=== PATIENT | male | born 1960 | race Caucasian/White ===

== ENCOUNTER → 2017-04-15 | Outpatient (CLI) | payer BC ==
[~2017-04-15] MED LIST: CETI10TA10 PO; IPRA0.06; MULT-506 PO; SILD50TA PO
--- NOTE | 2017-04-15 08:14 | DIAGNOSTIC IMAGING REPORT ---
(BARIUM SWALLOW) ESOPHAGUS CLINICAL HISTORY: 56 years-old Male presenting with DYSPHAGIA. TECHNIQUE: A standard air contrast barium esophagram is performed. Multiple spot images of the esophagus are acquired both upright and prone. COMPARISON: None. FINDINGS: The patient was able to ingest barium and the barium pill without difficulty. No aspiration observed. Normal mucosal pattern of the hypopharynx and esophagus. No evidence of intrinsic or extrinsic mass lesion. The gastroesophageal junction distended normally. No gastroesophageal reflux was observed. Fluoroscopy time: 1.7 minutes. Fluoroscopic images: 21. IMPRESSION: Normal swallow study without aspiration or esophageal abnormality. Electronically signed by: Arcadio Stone 04/15/2017 8:13 AM Dictated Date/Time: 04/15/2017 8:11 AM
== END | disposition home or self-care (01) ==
LOC: C.RAD 07:25
DX: R13.14 Dysphagia, pharyngoesophageal phase (principal)

== ENCOUNTER → 2018-05-11 | Outpatient (CLI) | payer OTHER ==
--- NOTE | 2018-05-11 09:38 | DIAGNOSTIC IMAGING REPORT ---
ABDOMEN FOR HERNIA HISTORY: 58 years-old Male R10.30 Inguinal pain04/28/18 @ [facility], arrive at 12pm to register E acute right inguinal pain with history of prior inguinal hernia repair. COMPARISON: Right hip radiographs 08/03/2013 TECHNIQUE: Multiple real-time sonogram images of the right inguinal tissues were obtained assessing grayscale appearance and color flow FINDINGS: No focal abnormality identified within the right inguinal tissues. No hernia, adenopathy, focal fluid collection or soft tissue mass identified. Heterogeneous shadowing area within the right inguinal canal suggests possible mesh material from prior hernia repair. No recurrent hernia identified. IMPRESSION: No sonographic evidence of a right-sided inguinal hernia. The above report was generated using voice recognition software. It may contain grammatical, syntax or spelling errors. Electronically signed by: Familia Castellano M.D. 05/11/2018 9:36 AM Dictated Date/Time: 05/11/2018 9:34 AM
== END | disposition home or self-care (01) ==
LOC: C.ULTR 09:12
PROVIDERS: ATTEND Internal Medicine
DX: R10.30 Lower abdominal pain, unspecified (principal)

== ENCOUNTER 2023-11-07 21:40 | Inpatient (IN) ==
[2023-11-07 22:14] LABS: Basophils # (auto) 0.04 K/uL (0.00-0.20); Basophils % (auto) 0.2 %; Eosinophils # (auto) 0.02 K/uL (0.00-0.50); Eosinophils % (auto) 0.1 %; Hematocrit (blood only) 42.2 % (42.0-52.0); Immature Granulocytes # (auto) 0.13 K/uL (0.01-0.20); Immature Granulocytes % (auto) 0.6 %; Lymphocytes # (auto) 1.21 K/uL (1.20-3.40); Lymphocytes % (auto) 5.8 %; Mean Corpuscular Hemoglobin 30.2 pg (25.0-34.0); Mean Corpuscular Hgb Conc 33.2 g/dL (32.0-36.0); Mean Corpuscular Volume 91.1 fL (80.0-100.0); Mean Platelet Volume 8.2 fL (9.4-12.4); Monocytes # (auto) 0.75 K/uL (0.11-0.59); Monocytes % (auto) 3.6 %; Neutrophils # (auto) 18.63 K/uL (1.40-6.50); Neutrophils % (auto) 89.7 %; Platelet Count 220 K/uL (130-400); RDW Coefficient of Variation 12.7 % (11.5-14.5); RDW Standard Deviation 41.5 fL (36.4-46.3); Red Blood Count 4.63 M/uL (4.70-6.10); White Blood Count 20.78 K/ul (4.8-10.8)
[2023-11-07 22:30] LABS: Albumin Globulin Ratio 1.4 (0.9-2); Albumin Level 4.5 gm/dl (3.4-5.0); BUN Creatinine Ratio 19.4 (10-20); Bilirubin,Total 0.4 mg/dl (0.2-1.0); Calcium 9.7 mg/dl (8.6-10.3); Creatinine Clr Calc Pharmacy 107.7 ml/min; Est GFR (African American) 115.1 ml/min; Est GFR (Non-African American) 99.3 ml/min; Globulin 3.2 gm/dl (2.5-4.0); Potassium 3.8 mmol/L (3.5-5.1); Total Protein 7.7 gm/dl (6.0-8.3)
[2023-11-07 22:37] LABS: Troponin I High Sensitivity 3.3 pg/ml (0-20)
[2023-11-07 22:41] LABS: INR 0.9 (0.9-1.1); Partial Thromboplastin Ratio 1.1; Partial Thromboplastin Time 31 Seconds (21-31); Prothrombin Time 10.3 Seconds (9.0-12.0)
[2023-11-07 22:58] LABS: Adenovirus PCR Not Detected (NotDetected); Bordetella parapertussis PCR Not Detected (NotDetected); Bordetella pertussis PCR Not Detected (NotDetected); Chlamydia pneumoniae PCR Not Detected (NotDetected); Coronavirus 229E PCR Not Detected (NotDetected); Coronavirus CoV-2 (COVID19)PCR Not Detected (NotDetected); Coronavirus HKU1 PCR Not Detected (NotDetected); Coronavirus NL63 PCR Not Detected (NotDetected); Coronavirus OC43PCR Not Detected (NotDetected); Human Metapneumovirus PCR Not Detected (NotDetected); Influenza A PCR Not Detected (NotDetected); Influenza B PCR Not Detected (NotDetected); Mycoplasma pneumoniae PCR Not Detected (NotDetected); Parainfluenza Virus 1 PCR Not Detected (NotDetected); Parainfluenza Virus 2 PCR Not Detected (NotDetected); Parainfluenza Virus 3 PCR Not Detected (NotDetected); Parainfluenza Virus 4 PCR Not Detected (NotDetected); Respiratory Syncytial VirusPCR Not Detected (NotDetected); Rhinovirus/Enterovirus PCR Not Detected (NotDetected)
[2023-11-07] MEDS ORDERED: PIPERACILLIN/TAZOBACTAM 4.5 GM/100 ML BAG IV ONE (23:02)
[2023-11-07] MEDS ORDERED: ACETAMINOPHEN 1,000 MG/100 ML VIAL IV STA (23:02)
[2023-11-07] MEDS ORDERED: KETOROLAC TROMETHAMINE 15 MG/ML VIAL IV STA (23:02)
[2023-11-07] MEDS: SODIUM CHLORIDE 0.9% 1,000 ML IV SCH ×2 (23:21→23:54)
--- NOTE | 2023-11-07 23:35 | Emergency Department Note ---
History of Present Illness General Chief complaint: Shortness of Breath/Dyspnea Stated complaint: LOW OX, SOB/CHEST PAIN, RSV/PNEMONIA Time Seen by Provider: 11/07/23 22:49 History of Present Illness Maximum Pain Intensity: 7 This 63-year-old male who had RSV at the beginning of the month and has been on cefdinir, Zithromax and steroids presents ER for worsening symptoms. Patient complains of cough, congestion, chest pain, dyspnea, back pain and generalized illness. He states his O2 today was 88% at home. He does not smoke. Family doctor started him on Advair recently. No history of PE or DVT. He does not smoke. Patient denies abdominal pain, vomiting, diarrhea. is present. Home Medications Medication Instructions Recorded Confirmed Type cetirizine 10 mg tablet 10 mg PO QPM #30 tabs 04/26/19 11/07/23 History multivitamin (Daily Multi-Vitamin 1 tab PO QAM 04/26/19 11/07/23 History tablet) sildenafil (pulm.hypertension) 20 20 mg PO UD PRN ud #30 tabs 05/04/22 11/07/23 Rx mg tablet lactobacillus comb no.10 20 20,000 mmu cells PO QAM 11/30/22 11/07/23 History billion cell capsule (Probiotic) magnesium citrate 4 gram oral 250 mg PO QAM 11/30/22 11/07/23 History packet zinc 15 mg tablet 15 mg PO QAM 11/30/22 11/07/23 History albuterol sulfate 90 mcg/actuation 2 inh inhalation Q4H PRN sob #8.5 07/11/23 11/07/23 Rx aerosol inhaler grams [id number]/Laxasperse Cap See Rx Instructions .Route 09/13/23 11/07/23 Rx .COMPLEX #20 caps benzonatate 200 mg capsule 200 mg PO TID PRN cough #30 caps 10/24/23 11/07/23 Rx fluticasone propionate 115 2 puff inhalation BID #12 grams 11/01/23 11/07/23 Rx mcg-salmeterol 21 mcg/actuation HFA inhaler (Advair HFA) ipratropium bromide 42 mcg (0.06 2 spray intranasal BID 11/07/23 11/07/23 History %) nasal spray omega-3 fatty acids 1,000 mg 1,000 mg PO QAM 11/07/23 11/07/23 History capsule Allergies Allergy/AdvReac Type Severity Reaction Status Date / Time house dust mite Allergy Mild congestion Verified 11/01/23 10:04 mold Allergy Mild congestion Verified 11/01/23 10:04 pollen extracts Allergy Mild congestion Verified 11/01/23 10:04 weed pollen Allergy Mild congestion Verified 11/01/23 10:04 codeine AdvReac Mild N/V Verified 11/01/23 10:04 Past Med/Surg History Medical History History of colon polyps Environmental allergies History of COVID-19 09/2020>resolved Hernia Constipation gluten intolerance Arrhythmia arrhythmia noted during stress test + 15 years ago; resolved, no issues since; followed w/ cardio x 1 year; no longer sees a senior software qa analyst. Chest tightness Inguinal pain Surgical History S/P left inguinal hernia repair (01/21/23) Left Inguinal Hernia Open Repair with Mesh(Left). Left ilioinguinal neurolysis- Lance Flowers, DO H/O inguinal hernia repair RT Nausea and vomiting after administration of anesthetic agent History of wisdom tooth extraction History of sinus surgery multiple > polyps removed History of colonoscopy H/O uvulectomy Dr. Catherine-10/22/2016 H/O vasectomy Family History Father Acute myocardial infarction Diabetes Hearing loss Hypertension Heart disease Stroke Mother Allergies Aunt Colon cancer maternal Cancer Grandfather (Paternal) Acute myocardial infarction Brother Hypertension Grandfather (Maternal) Lung cancer smoker Grandmother Cancer Grandfather Cancer Other No family history of adverse response to anesthesia No family history of bleeding disorder Denies family history of Ovarian cancer Prostate cancer Breast cancer Social History Smoking Status: Never smoker Second Hand Exposure: No; Do You Dip or Chew Tobacco: No; Hx Alcohol Use: Yes Alcohol type: wine Alcohol Intake Frequency: 2-3 x/Week Alcohol Intake Frequency Comment: 2 glasses of wine on the weekend Hx Substance Use: No Preferred Language: Cambodian Communication Ability: Effective Visual Impairment: No Limitations Hearing Ability: Normal Braille Translator Required: No Beliefs That Will Affect Care: None marital status: Current Living Situation: Spouse current occupational status: employed 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 How many Children do You have: 4 Feels Safe at Home: Yes Childhood Exposure to Second-Hand Smoke: Yes during the past year weight has: remained stable Dental Care, Regularly: Yes Physical Activity Frequency: 5-6 Times per Week Seatbelt Use: always Sunscreen Use: Yes Assistive Devices: Glasses and Hearing Aid - Bilateral Review of Systems A total of 10 systems reviewed and were otherwise negative Physical Exam Vital Signs Vital Signs - 24 hr 11/07/23 21:44 11/07/23 23:09 11/07/23 23:18 Temperature 37.1 C 39.2 C H Temperature Source Oral Oral Pulse Rate 105 H 104 H Pulse Rate from SpO2 Sensor Respiratory Rate 18 Respiratory Effort / Characteristics Non-Labored Spontaneous Respiratory Depth Normal Blood Pressure 170/90 H Blood Pressure Mean 116 Pulse Oximetry 97 Oxygen Delivery Method Room Air Oxygen Flow Rate Sepsis Recent Fever Within 48 Hours No Sepsis New/Unexplained Change in Mental Status No Sepsis Action Taken by Nursing No Action Required 11/07/23 23:18 11/07/23 23:19 11/07/23 23:19 Temperature Temperature Source Pulse Rate 103 H 104 H Pulse Rate from SpO2 Sensor 103 H 103 H Respiratory Rate 24 24 Respiratory Effort / Characteristics Respiratory Depth Blood Pressure 140/86 Blood Pressure Mean 98 Pulse Oximetry 96 96 Oxygen Delivery Method Oxygen Flow Rate Sepsis Recent Fever Within 48 Hours Sepsis New/Unexplained Change in Mental Status Sepsis Action Taken by Nursing 11/07/23 23:30 11/07/23 23:30 11/07/23 23:50 Temperature Temperature Source Pulse Rate 103 H Pulse Rate from SpO2 Sensor 103 H Respiratory Rate 15 Respiratory Effort / Characteristics Respiratory Depth Blood Pressure 145/79 H Blood Pressure Mean 92 Pulse Oximetry 97 Oxygen Delivery Method Room Air Oxygen Flow Rate 96 Sepsis Recent Fever Within 48 Hours Sepsis New/Unexplained Change in Mental Status Sepsis Action Taken by Nursing 11/07/23 23:50 11/08/23 00:06 11/08/23 00:30 Temperature Temperature Source Pulse Rate 108 H 100 H Pulse Rate from SpO2 Sensor 100 H Respiratory Rate 19 21 Respiratory Effort / Characteristics Respiratory Depth Blood Pressure Blood Pressure Mean Pulse Oximetry 96 96 Oxygen Delivery Method Room Air Oxygen Flow Rate 0 Sepsis Recent Fever Within 48 Hours Sepsis New/Unexplained Change in Mental Status Sepsis Action Taken by Nursing 11/08/23 00:41 Temperature 37.5 C Temperature Source Oral Pulse Rate Pulse Rate from SpO2 Sensor Respiratory Rate Respiratory Effort / Characteristics Respiratory Depth Blood Pressure Blood Pressure Mean Pulse Oximetry Oxygen Delivery Method Oxygen Flow Rate Sepsis Recent Fever Within 48 Hours Sepsis New/Unexplained Change in Mental Status Sepsis Action Taken by Nursing VITALS: Vitals are noted on the nurse's note and reviewed by myself. Vital signs febrile GENERAL: Pleasant male, in no acute distress, nondiaphoretic, well-developed well-nourished. SKIN: Capillary reflex less than 2 seconds. HEENT: Normocephalic. PERRLA. EOMI. Nares patent. Mucous membranes moist. Neck is supple without nuchal rigidity. HEART: Regular rate and rhythm LUNGS: Clear to auscultation bilaterally without wheezes, rales or rhonchi. No retractions or accessory muscle use. ABDOMEN: Positive bowel sounds x 4. Normal tympanic percussion. Soft, nontender, without masses or organomegaly. Romano sign negative. No guarding or rebound tenderness. no CVA tenderness MUSCULOSKELETAL: No gross musculoskeletal defects. NEURO: Patient was alert and oriented to person place and time. No focal neurological deficits. Course Administered Medications Sodium Chloride (Nss) 1,000 mls @ 999 mls/hr IV .Q1H1M TWYLA Stop: 11/08/23 01:15 Last Admin: 11/07/23 23:54 Dose: 999 mls/hr Documented By: Infusion: 11/07/23 23:53 Dose: Infused Documented By: Infusion: 11/07/23 23:53 Dose: Infused Documented By: Admin: 11/07/23 23:21 Dose: 999 mls/hr Documented By: JODIE Discontinued Medications Acetaminophen (Ofirmev) 1,000 mg in 100 mls @ 400 mls/hr IV NOW STA Stop: 11/07/23 23:16 Last Infusion: 11/07/23 23:52 Dose: Infused Documented By: Admin: 11/07/23 23:20 Dose: 400 mls/hr Documented By: JODIE Piperacillin Sod/Tazobactam Sod (Zosyn) 4.5 gm in 100 mls @ 200 mls/hr IV NOW ONE Stop: 11/07/23 23:31 Last Admin: 11/07/23 23:45 Dose: 200 mls/hr Documented By: JODIE Ioversol (Optiray 320 125ml) 125 ml IV ONCE ONE Stop: 11/08/23 00:04 Last Admin: 11/08/23 00:03 Dose: 119 ml Documented By: TEODORA Ketorolac Tromethamine (Ketorolac Tromethamine 15 Mg/Ml Vial) 10 mg IV NOW STA Stop: 11/07/23 23:03 Last Admin: 11/07/23 23:20 Dose: 10 mg Documented By: JODIE Medical Decision Making Medical Records Attestation: I reviewed the patient's medical records. Home Medications Current Medication List: was personally reviewed by me Laboratory Data Attestation: I reviewed the patient's lab results. 11/07/23 21:53 11/07/23 21:53 Lab Results 11/07/23 11/07/23 11/07/23 Range/Units 21:53 22:00 23:37 WBC 20.78 H (4.8-10.8) K/ul RBC 4.63 L (4.70-6.10) M/uL Hgb 14.0 (14.0-18.0) g/dl Hct 42.2 (42.0-52.0) % MCV 91.1 (80.0-100.0) fL MCH 30.2 (25.0-34.0) pg MCHC 33.2 (32.0-36.0) g/dL RDW Std Deviation 41.5 (36.4-46.3) fL RDW Coeff of Kateryna 12.7 (11.5-14.5) % Plt Count 220 (130-400) K/uL MPV 8.2 L (9.4-12.4) fL Immature Gran % (Auto) 0.6 % Neut % (Auto) 89.7 % Lymph % (Auto) 5.8 % Taylor % (Auto) 3.6 % Eos % (Auto) 0.1 % Baso % (Auto) 0.2 % Neut # (Auto) 18.63 H (1.40-6.50) K/uL Lymph # (Auto) 1.21 (1.20-3.40) K/uL Taylor # (Auto) 0.75 H (0.11-0.59) K/uL Eos # (Auto) 0.02 (0.00-0.50) K/uL Baso # (Auto) 0.04 (0.00-0.20) K/uL Immature Gran # (Auto) 0.13 (0.01-0.20) K/uL PT 10.3 (9.0-12.0) Seconds INR 0.9 (0.9-1.1) APTT 31 (21-31) Seconds PTT Ratio 1.1 Sodium 137 (136-145) mmol/L Potassium 3.8 (3.5-5.1) mmol/L Chloride 100 (98-107) mmol/L Carbon Dioxide 29 (21-32) mmol/L Anion Gap 8 (3-11) BUN 14 (6-23) mg/dl Creatinine 0.72 (0.6-1.4) mg/dl Est Cr Clr Drug Dosing 107.7 ml/min Est GFR ( Amer) 115.1 ml/min Est GFR (Non-Af Amer) 99.3 ml/min BUN/Creatinine Ratio 19.4 (10-20) Glucose 100 H (70-99(Fasting)) mg/dl Lactate 1.4 (0.4-2.0) mmol/L Calcium 9.7 (8.6-10.3) mg/dl Total Bilirubin 0.4 (0.2-1.0) mg/dl AST 15 (13-39) U/L ALT 13 (7-52) U/L Alkaline Phosphatase 83 (34-104) U/L Total Creatine Kinase 47 (30-223) U/L Troponin I High Sens 3.3 (0-20) pg/ml Total Protein 7.7 (6.0-8.3) gm/dl Albumin 4.5 (3.4-5.0) gm/dl Globulin 3.2 (2.5-4.0) gm/dl Albumin/Globulin Ratio 1.4 (0.9-2) Procalcitonin < 0.05 (0-0.5) ng/ml Adenovirus (PCR) Not Detected (NotDetected) B. pertussis DNA (PCR) Not Detected (NotDetected) B.parapertussis DNA PCR Not Detected (NotDetected) C. pneumoniae DNA (PCR) Not Detected (NotDetected) Coronavirus OC43 (PCR) Not Detected (NotDetected) Coronavirus HKU1 (PCR) Not Detected (NotDetected) Coronavirus 229E (PCR) Not Detected (NotDetected) SARS-CoV-2 (PCR) Not Detected (NotDetected) Coronavirus NL63 (PCR) Not Detected (NotDetected) Human Metapneumovir PCR Not Detected (NotDetected) Influenza Type A (PCR) Not Detected (NotDetected) Influenza Type B (PCR) Not Detected (NotDetected) M. pneumoniae (PCR) Not Detected (NotDetected) Parainfluenza 1 (PCR) Not Detected (NotDetected) Parainfluenza 2 (PCR) Not Detected (NotDetected) Parainfluenza 3 (PCR) Not Detected (NotDetected) Parainfluenza 4 (PCR) Not Detected (NotDetected) RSV (PCR) Not Detected (NotDetected) Entero/Rhino (PCR) Not Detected (NotDetected) Imaging Data Attestation: I personally reviewed and interpreted this imaging study as follows: Radiologist's Impression: Chest CTA 11/07/23 23:34 Exam(s): CTA CHEST IV Amt: 119 ml optiray 320 EXAM: CT Angiography Chest With Intravenous Contrast CLINICAL HISTORY: Pulmonary embolus. TECHNIQUE: Axial computed tomographic angiography images of the chest with intravenous contrast. CTDI is 27 mGy and DLP is 571.76 mGy-cm. Automated exposure control was utilized for the study. A dose lowering technique was utilized adhering to the principles of ALARA. MIP reconstructed images were created and reviewed. COMPARISON: Chest radiograph 11/07/2023 FINDINGS: Pulmonary arteries: Unremarkable. No pulmonary embolus. Aorta: Minimal atherosclerosis. No thoracic aortic aneurysm. Lungs: Airspace opacities of the bilateral lower lobes and right upper lobe are concerning for multifocal pneumonia and/or aspiration. Pleural space: Unremarkable. No significant effusion. No pneumothorax. Heart: Unremarkable. No cardiomegaly. No significant pericardial effusion. No evidence of RV dysfunction. Bones/joints: There are degenerative changes of the spine. No acute fracture. Soft tissues: Unremarkable. Lymph nodes: Unremarkable. No enlarged lymph nodes. IMPRESSION: 1. No pulmonary embolus. 2. Airspace opacities of the bilateral lower lobes, right upper lobe and to a lesser degree right middle lobe are concerning for multifocal pneumonia and/or aspiration. Electronically signed by: Anna Stokes MD 11/08/23 00:30 AM [facility] Narrative Prior records/ancillary studies reviewed. Triage Nursing notes reviewed. Additional history obtained from family. The patient's history was concerning for fever. Differential diagnosis: Etiologies such as viral syndrome, otitis, pharyngitis, pneumonia, influenza, meningitis, urinary tract infection, sepsis, bacteremia, as well as others were entertained. Physical examination: As above ER treatment provided: An order was placed for continuous cardiac monitoring. The monitor shows a rate of 60-1 20 with a sinus rhythm per my interpretation. IV fluids, Toradol, Tylenol, Zosyn was ordered On reassessment the patient felt better. Diagnostics interpreted by me: ECG: Ordered for chest pain EKG: Normal sinus, normal intervals, no acute ST-T wave changes, rate 100. Impression normal sinus rhythm independent interpreted by myself The labs Independently Interpreted by myself revealed leukocytosis, negative [employer] Blood cultures pending extracts, weed pollen, codeine (More) Close Micro Respiratory Specimen 10/14/23 Gram Stain - Final [employer] [address], [place] [address] / Director: Arcadio Shook M.D. Clinical Laboratory Report Name: Paulina FREED III Acct: [id number] Status: DEP ER : 1960 [facility] [place] Date: 10/14/23 Age: 63 Sex: M Dis Date: Loc: Emergency Department Spec: [id number] Collected: 10/14/23115 Received: 10/14/23-[address]: Damion Ochoa DO Source: Sputum, Expectorated OV Order: Ordered: Sputum Cult/Smr Procedure Result Verified Site Gram Stain Final 10/15/23-740 Gram Stain Result Many Polys Seen Rare Epithelial Cells Moderate Gram Positive Cocci Few Gram Negative Cocci Sputum Culture Final 10/17/23-1146 Organism 1 Streptococcus pneumoniae Quantity Many Sens Sensitivities to Follow Normal Melanie Light Normal Melanie S pneumo RX M.I.C. --- --------- Amox/Clav S <=0.5/.25 Azithromycin S <=0.25 Cefepime S <=0.25 Cefotaxime S <=0.25 Cefotaxime S Ceftriaxone S <=0.25 Ceftriaxone S Cefuroxime S <=0.25 Chloramphenicol S <=1 Clindamycin S <=0.06 Erythromycin S <=0.06 Levofloxacin S 1 Meropenem S <=0.06 Penicillin S <=0.03 Penicillin S Penicillin Oral S Tetracycline S <=0.5 Trimeth/Sulfa S <=.25/4.7 Vancomycin S 0.5 Streptococcus pneumoniae: Strep Plus Non Meningitis Interpretations S = SENSITIVE I = INTERMEDIATE R = RESISTANT Imaging studies: Chest x-ray concerning for right lower lobe pneumonia per my independent interpretation CTA concerning for multifocal pneumonia CURB Score: Confusion: 0 Urea (BUN > 19): 0 Respiratory Rate (>30/min): 0 Blood Pressure: Diastolic <60 or Systolic <90 0 Age (>= 65) 0 Total (0-1 low risk, 2-5 high risk): 0 Consultation: A consultation was placed with hospitalist. The case was discussed and diagnostics were reviewed. The patient was evaluated in the ER for further treatment. This appears to be consistent with multifocal pneumonia. Patient has already been on antibiotics and steroids. He is getting much worse. Sats at home are 88%. He was given Zosyn and medicated as above. He was reassessed multiple times. Medicine was consulted and case was discussed. Patient will be admitted to there service for further evaluation and work. By the evaluation outlined above emergent etiologies such as otitis, pharyngitis, meningitis, urinary tract infection, sepsis, bacteremia, as well as others were deemed relatively unlikely. The pt informed about the findings as listed above. All questions were answered and pleased with the treatment. The chart was completed utilizing [employer] voice recognition software. Grammatical errors, random word insertions, pronoun errors, and incomplete sentences are an occassional consequence of this system due to software limitations, ambient noise, and hardware issues. Any formal questions or concerns about the content, text, or information contained within the body of this dictation should be directly addressed to the physician operator assistant i cementing for clarification. Impression & Plan Multifocal pneumonia Discharge Plan Visit Data Chief Complaint: Shortness of Breath/Dyspnea Stated Complaint: LOW OX, SOB/CHEST PAIN, RSV/PNEMONIA ED Provider: Sandi Gibson ED Midlevel Provider: Kerrie Gaxiola Discharge Problem: Multifocal pneumonia Patient Disposition: Admitted As Inpatient Condition: Good Forms Stand Alone Forms: [facility]gor Prescriptions Prescriptions: No Action sildenafil (pulm.hypertension) 20 mg tablet 20 mg PO UD PRN (Reason: ud) Qty: 30 3RF Rx Instructions: 20 mg PO TAKE 2-5 TABLETS PRN; benzonatate 200 mg capsule 200 mg PO TID PRN (Reason: cough) Qty: 30 0RF [id number]/Laxasperse Cap capsule See Rx Instructions .ROUTE .COMPLEX Qty: 20 1RF Rx Instructions: Mix 1 cap & 1 saline pkt w/ 6oz distilled h20 in bottle. Irrigate 3oz each nasal passage BID. fluticasone propion-salmeterol [Advair HFA] 115-21 mcg/actuation HFA aerosol inhaler 2 puff inhalation BID Qty: 12 1RF cetirizine 10 mg tablet 10 mg PO QPM Qty: 30 multivitamin [Daily Multi-Vitamin] tablet 1 tab PO QAM albuterol sulfate 90 mcg/actuation HFA aerosol inhaler 2 inh INH Q4H PRN (Reason: sob) Qty: 8.5 5RF zinc 15 mg Tablet 15 mg PO QAM magnesium citrate 4 gram Packet 250 mg PO QAM Probiotic 20 billion cell Capsule 20,000 mmu cells PO QAM Rx Instructions: administer with a meal ipratropium bromide 42 mcg (0.06 %) spray,non-aerosol 2 spray intranasal BID omega-3 fatty acids 1,000 mg Capsule 1,000 mg PO QAM Referrals Referrals: Luis Baird MD [Primary Care Provider] -
[2023-11-08] MEDS ORDERED: OPTIRAY 320 125ml IV ONE (00:03)
--- NOTE | 2023-11-08 00:32 | CT Scan Report ---
Exam(s): CTA CHEST IV Amt: 119 ml optiray 320 EXAM: CT Angiography Chest With Intravenous Contrast CLINICAL HISTORY: Pulmonary embolus. TECHNIQUE: Axial computed tomographic angiography images of the chest with intravenous contrast. CTDI is 27 mGy and DLP is 571.76 mGy-cm. Automated exposure control was utilized for the study. A dose lowering technique was utilized adhering to the principles of ALARA. MIP reconstructed images were created and reviewed. COMPARISON: Chest radiograph 11/07/2023 FINDINGS: Pulmonary arteries: Unremarkable. No pulmonary embolus. Aorta: Minimal atherosclerosis. No thoracic aortic aneurysm. Lungs: Airspace opacities of the bilateral lower lobes and right upper lobe are concerning for multifocal pneumonia and/or aspiration. Pleural space: Unremarkable. No significant effusion. No pneumothorax. Heart: Unremarkable. No cardiomegaly. No significant pericardial effusion. No evidence of RV dysfunction. Bones/joints: There are degenerative changes of the spine. No acute fracture. Soft tissues: Unremarkable. Lymph nodes: Unremarkable. No enlarged lymph nodes. IMPRESSION: 1. No pulmonary embolus. 2. Airspace opacities of the bilateral lower lobes, right upper lobe and to a lesser degree right middle lobe are concerning for multifocal pneumonia and/or aspiration. Electronically signed by: Anna Stokes MD 11/08/23 00:30 AM
[2023-11-08 01:32] LABS: Appearance Urine Clear (Clear); Bilirubin Urine Negative (Negative); Blood Urine Negative (Negative); Color Urine Yellow; Glucose Urine UA Negative (Negative); Ketones Urine Negative (Negative); Leukocyte Esterase Urine Negative (Negative); Nitrite Urine Negative (Negative); Protein Urine Negative (Negative); Specific Gravity Urine 1.016 (1.000-1.030); Urobilinogen Urine Negative (Negative)
--- NOTE | 2023-11-08 01:46 | History & Physical Report ---
Date of Service November 08, 2023 Assessment & Plan (1) Multifocal pneumonia: Plan: 63yo male with ongoing respiratory complaints for approximately 1 month. Patient has completed 10 days of Cefdinir, 5 days of Azithromycin as well as a course of Solumedrol. He has been using his Advair inhaler BID as well. Still with persistent cough keeping him up at night. He experienced worsening of symptoms today including fever, chills, body aches, worsening fatigue and cough as well as hypoxia at home to 87% on room air. Workup as above with elevation on WBC count at 20.78 with neutrophil predominance. Procalcitonin is NEGATIVE as is Respiratory biofire panel. CTA chest with multifocal PNA. Saturations are adequate on room air here. -Admit to Medical -Check sputum culture and gram stain -Check legionella -Check Fungitell -Check MRSA nares -Continue Zosyn -Tylenol PRN -Hycodan cough medicine 5mL po TID PRN -Mucinex 1200mg po BID -Zofran PRN -Continue Advair and PRN Albuterol History of Present Illness Chief Complaint: cough, SOB and Fever Primary Care Provider: Luis Baird MD Corey Moore is a 63yo male with a history of well controlled asthma and chronic sinusitis presenting with fever, chills and cough. Patient first became ill approximately 1 month ago at the beginning of October. He had productive cough, fevers, chills and body aches at that time. On 10/14/23 he was found to be POSITIVE for RSV as well as Streptococcus pneumoniae in the sputum. He was seen by his PCP at that time and ultimately sent to the ER for persistent tachycardia. He had a CTA of the chest which showed mucus plugging with a mild right basilar PNA, no PE. He was prescribed Cefdinir x 10d as well as Azithromycin x 5d course which he completed. He reports that his symptoms persisted. He was seen again by his PCP on 10/19/23 and was started on Medrol dose pack for ongoing symptoms. Again he reported that his symptoms persisted. He was seen again by his PCP on 11/01/23 and was started on Advair. He has had ongoing cough and congestion as well as some right sided back pain. Today he noted worsening cough with yellow sputum as well as chills/shakes and a fever to 102. His pulse ox was also low at 87% on room air.. In the ER he is afebrile, HD stable. Adequate oxygenation on room air. ER Course: Toradol 10mg IV Tylenol 1gm IV NSS x 2L Zosyn 4.5gm Allergies Allergy/AdvReac Type Severity Reaction Status Date / Time house dust mite Allergy Mild congestion Verified 11/01/23 10:04 mold Allergy Mild congestion Verified 11/01/23 10:04 pollen extracts Allergy Mild congestion Verified 11/01/23 10:04 weed pollen Allergy Mild congestion Verified 11/01/23 10:04 codeine AdvReac Mild N/V Verified 11/01/23 10:04 Home Medications Medication Instructions Recorded Confirmed Type cetirizine 10 mg tablet 10 mg PO QPM #30 tabs 04/26/19 11/07/23 History multivitamin (Daily Multi-Vitamin 1 tab PO QAM 04/26/19 11/07/23 History tablet) sildenafil (pulm.hypertension) 20 20 mg PO UD PRN ud #30 tabs 05/04/22 11/07/23 Rx mg tablet lactobacillus comb no.10 20 20,000 mmu cells PO QAM 11/30/22 11/07/23 History billion cell capsule (Probiotic) magnesium citrate 4 gram oral 250 mg PO QAM 11/30/22 11/07/23 History packet zinc 15 mg tablet 15 mg PO QAM 11/30/22 11/07/23 History albuterol sulfate 90 mcg/actuation 2 inh inhalation Q4H PRN sob #8.5 07/11/23 11/07/23 Rx aerosol inhaler grams [id number]/Laxasperse Cap See Rx Instructions .Route 09/13/23 11/07/23 Rx .COMPLEX #20 caps benzonatate 200 mg capsule 200 mg PO TID PRN cough #30 caps 10/24/23 11/07/23 Rx fluticasone propionate 115 2 puff inhalation BID #12 grams 11/01/23 11/07/23 Rx mcg-salmeterol 21 mcg/actuation HFA inhaler (Advair HFA) ipratropium bromide 42 mcg (0.06 2 spray intranasal BID 11/07/23 11/07/23 History %) nasal spray omega-3 fatty acids 1,000 mg 1,000 mg PO QAM 11/07/23 11/07/23 History capsule Past Med/Surg History Medical History History of colon polyps Environmental allergies History of COVID-19 09/2020>resolved Hernia Constipation gluten intolerance Arrhythmia arrhythmia noted during stress test + 15 years ago; resolved, no issues since; followed w/ cardio x 1 year; no longer sees a phlebotomy services representative. Chest tightness Inguinal pain Surgical History S/P left inguinal hernia repair (01/21/23) Left Inguinal Hernia Open Repair with Mesh(Left). Left ilioinguinal neurolysis- Lance Flowers DO H/O inguinal hernia repair RT Nausea and vomiting after administration of anesthetic agent History of wisdom tooth extraction History of sinus surgery multiple > polyps removed History of colonoscopy H/O uvulectomy Dr. Catherine-10/22/2016 H/O vasectomy Family History Father Acute myocardial infarction Diabetes Hearing loss Hypertension Heart disease Stroke Mother Allergies Aunt Colon cancer maternal Cancer Grandfather (Paternal) Acute myocardial infarction Brother Hypertension Grandfather (Maternal) Lung cancer smoker Grandmother Cancer Grandfather Cancer Other No family history of adverse response to anesthesia No family history of bleeding disorder Denies family history of Ovarian cancer Prostate cancer Breast cancer Social History Smoking Status: Never smoker Second Hand Exposure: No; Do You Dip or Chew Tobacco: No; Hx Alcohol Use: Yes Alcohol type: wine Alcohol Intake Frequency: 2-3 x/Week Alcohol Intake Frequency Comment: 2 glasses of wine on the weekend Hx Substance Use: No Preferred Language: Bahamian Communication Ability: Effective Visual Impairment: No Limitations Hearing Ability: Normal Futures Trader Required: No Beliefs That Will Affect Care: None marital status: Current Living Situation: Spouse current occupational status: employed 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 How many Children do You have: 4 Feels Safe at Home: Yes Childhood Exposure to Second-Hand Smoke: Yes during the past year weight has: remained stable Dental Care, Regularly: Yes Physical Activity Frequency: 5-6 Times per Week Seatbelt Use: always Sunscreen Use: Yes Assistive Devices: Glasses and Hearing Aid - Bilateral Review of Systems Review of Systems: All systems reviewed & are unremarkable except as noted in HPI & below Physical Exam Physical Exam: General: patient resting comfortably, NAD, non-toxic in appearance, AA&O x 4 Skin: warm, dry, intact, no rashes or lesions HEENT: NC/AT, PERRL, EOMI, anicteric sclera, conjunctiva without injection, external ear normal to inspection and nontender, nares patent, moist mucus membranes, dentition intact, no oropharyngeal lesions, neck supple, trachea midline, no LAD, no thyromegaly, no JVD Heart: +S1/S2, regular, no m/r/g Lungs: equal air entry bilaterally, coarse rhonchi right mid-lung field Abd: +BS, soft, NT/ND, no masses/organomegaly/ascites Ext: warm, 2+ pulses in UE/LE bilaterally, no clubbing/cyanosis or edema Neuro: nonfocal, patient AA&O x 4, speech intact, no facial droop, moving all extremities on command with equal strength 5/5 Results & Data Results & Data Vital Signs (Past 12 Hours) Vital Signs Temp Pulse Resp BP Pulse Ox O2 Del Method O2 Flow Rate 11/08/23 01:00 98 H 17 119/68 96 11/08/23 00:41 37.5 C 11/08/23 00:30 100 H 21 96 11/08/23 00:06 108 H 19 11/07/23 23:50 96 Room Air 0 11/07/23 23:50 Room Air 96 11/07/23 23:30 145/79 H 11/07/23 23:30 103 H 15 97 11/07/23 23:19 140/86 11/07/23 23:19 104 H 24 96 11/07/23 23:18 103 H 24 96 11/07/23 23:18 104 H 11/07/23 23:09 39.2 C H 11/07/23 21:44 37.1 C 105 H 18 170/90 H 97 Room Air Laboratory Results Laboratory Results WBC 20.78 K/ul (4.8-10.8) H 11/07/23 21:53 RBC 4.63 M/uL (4.70-6.10) L 11/07/23 21:53 Hgb 14.0 g/dl (14.0-18.0) 11/07/23 21:53 Hct 42.2 % (42.0-52.0) 11/07/23 21:53 MCV 91.1 fL (80.0-100.0) 11/07/23 21:53 MCH 30.2 pg (25.0-34.0) 11/07/23 21:53 MCHC 33.2 g/dL (32.0-36.0) 11/07/23 21:53 RDW Std Deviation 41.5 fL (36.4-46.3) 11/07/23 21:53 RDW Coeff of Kateryna 12.7 % (11.5-14.5) 11/07/23 21:53 Plt Count 220 K/uL (130-400) 11/07/23 21:53 MPV 8.2 fL (9.4-12.4) L 11/07/23 21:53 Immature Gran % (Auto) 0.6 % 11/07/23 21:53 Neut % (Auto) 89.7 % 11/07/23 21:53 Lymph % (Auto) 5.8 % 11/07/23 21:53 Garrard % (Auto) 3.6 % 11/07/23 21:53 Eos % (Auto) 0.1 % 11/07/23 21:53 Baso % (Auto) 0.2 % 11/07/23 21:53 Neut # (Auto) 18.63 K/uL (1.40-6.50) H 11/07/23 21:53 Lymph # (Auto) 1.21 K/uL (1.20-3.40) 11/07/23 21:53 Garrard # (Auto) 0.75 K/uL (0.11-0.59) H 11/07/23 21:53 Eos # (Auto) 0.02 K/uL (0.00-0.50) 11/07/23 21:53 Baso # (Auto) 0.04 K/uL (0.00-0.20) 11/07/23 21:53 Immature Gran # (Auto) 0.13 K/uL (0.01-0.20) 11/07/23 21:53 PT 10.3 Seconds (9.0-12.0) 01/29/24 21:53 INR 0.9 (0.9-1.1) 11/07/23 21:53 APTT 31 Seconds (21-31) 11/07/23 21:53 PTT Ratio 1.1 11/07/23 21:53 Sodium 137 mmol/L (136-145) 11/07/23 21:53 Potassium 3.8 mmol/L (3.5-5.1) 11/07/23 21:53 Chloride 100 mmol/L (98-107) 11/07/23 21:53 Carbon Dioxide 29 mmol/L (21-32) 11/07/23 21:53 Anion Gap 8 (3-11) 11/07/23 21:53 BUN 14 mg/dl (6-23) 11/07/23 21:53 Creatinine 0.72 mg/dl (0.6-1.4) 11/07/23 21:53 Est Cr Clr Drug Dosing 107.7 ml/min 11/07/23 21:53 Est GFR ( Amer) 115.1 ml/min 11/07/23 21:53 Est GFR (Non-Af Amer) 99.3 ml/min 11/07/23 21:53 BUN/Creatinine Ratio 19.4 (10-20) 11/07/23 21:53 Glucose 100 mg/dl (70-99(Fasting)) H 11/07/23 21:53 Lactate 1.4 mmol/L (0.4-2.0) 11/07/23 23:37 Calcium 9.7 mg/dl (8.6-10.3) 11/07/23 21:53 Total Bilirubin 0.4 mg/dl (0.2-1.0) 11/07/23 21:53 AST 15 U/L (13-39) 11/07/23 21:53 ALT 13 U/L (7-52) 11/07/23 21:53 Alkaline Phosphatase 83 U/L (34-104) 11/07/23 21:53 Total Creatine Kinase 47 U/L (30-223) 11/07/23 21:53 Troponin I High Sens 3.3 pg/ml (0-20) 11/07/23 21:53 Total Protein 7.7 gm/dl (6.0-8.3) 11/07/23 21:53 Albumin 4.5 gm/dl (3.4-5.0) 11/07/23 21:53 Globulin 3.2 gm/dl (2.5-4.0) 11/07/23 21:53 Albumin/Globulin Ratio 1.4 (0.9-2) 11/07/23 21:53 Procalcitonin < 0.05 ng/ml (0-0.5) 11/07/23 21:53 Urine Color Yellow 11/08/23 01:00 Urine Appearance Clear (Clear) 11/08/23 01:00 Urine pH 6.0 (4.5-7.5) 11/08/23 01:00 Ur Specific Cornell 1.016 (1.000-1.030) 11/08/23 01:00 Urine Protein Negative (Negative) 11/08/23 01:00 Urine Glucose (UA) Negative (Negative) 11/08/23 01:00 Urine Ketones Negative (Negative) 11/08/23 01:00 Urine Blood Negative (Negative) 11/08/23 01:00 Urine Nitrite Negative (Negative) 11/08/23 01:00 Urine Bilirubin Negative (Negative) 11/08/23 01:00 Urine Urobilinogen Negative (Negative) 11/08/23 01:00 Ur Leukocyte Esterase Negative (Negative) 11/08/23 01:00 Adenovirus (PCR) Not Detected (NotDetected) 11/07/23 22:00 B. pertussis DNA (PCR) Not Detected (NotDetected) 11/07/23 22:00 B.parapertussis DNA PCR Not Detected (NotDetected) 11/07/23 22:00 C. pneumoniae DNA (PCR) Not Detected (NotDetected) 11/07/23 22:00 Coronavirus OC43 (PCR) Not Detected (NotDetected) 11/07/23 22:00 Coronavirus HKU1 (PCR) Not Detected (NotDetected) 11/07/23 22:00 Coronavirus 229E (PCR) Not Detected (NotDetected) 11/07/23 22:00 SARS-CoV-2 (PCR) Not Detected (NotDetected) 11/07/23 22:00 Coronavirus NL63 (PCR) Not Detected (NotDetected) 11/07/23 22:00 Human Metapneumovir PCR Not Detected (NotDetected) 11/07/23 22:00 Influenza Type A (PCR) Not Detected (NotDetected) 11/07/23 22:00 Influenza Type B (PCR) Not Detected (NotDetected) 11/07/23 22:00 M. pneumoniae (PCR) Not Detected (NotDetected) 11/07/23 22:00 Parainfluenza 1 (PCR) Not Detected (NotDetected) 11/07/23 22:00 Parainfluenza 2 (PCR) Not Detected (NotDetected) 11/07/23 22:00 Parainfluenza 3 (PCR) Not Detected (NotDetected) 11/07/23 22:00 Parainfluenza 4 (PCR) Not Detected (NotDetected) 11/07/23 22:00 RSV (PCR) Not Detected (NotDetected) 11/07/23 22:00 Entero/Rhino (PCR) Not Detected (NotDetected) 11/07/23 22:00 Impressions Chest CTA 11/07/23 23:34 Exam(s): CTA CHEST IV Amt: 119 ml optiray 320 EXAM: CT Angiography Chest With Intravenous Contrast CLINICAL HISTORY: Pulmonary embolus. TECHNIQUE: Axial computed tomographic angiography images of the chest with intravenous contrast. CTDI is 27 mGy and DLP is 571.76 mGy-cm. Automated exposure control was utilized for the study. A dose lowering technique was utilized adhering to the principles of ALARA. MIP reconstructed images were created and reviewed. COMPARISON: Chest radiograph 11/07/2023 FINDINGS: Pulmonary arteries: Unremarkable. No pulmonary embolus. Aorta: Minimal atherosclerosis. No thoracic aortic aneurysm. Lungs: Airspace opacities of the bilateral lower lobes and right upper lobe are concerning for multifocal pneumonia and/or aspiration. Pleural space: Unremarkable. No significant effusion. No pneumothorax. Heart: Unremarkable. No cardiomegaly. No significant pericardial effusion. No evidence of RV dysfunction. Bones/joints: There are degenerative changes of the spine. No acute fracture. Soft tissues: Unremarkable. Lymph nodes: Unremarkable. No enlarged lymph nodes. IMPRESSION: 1. No pulmonary embolus. 2. Airspace opacities of the bilateral lower lobes, right upper lobe and to a lesser degree right middle lobe are concerning for multifocal pneumonia and/or aspiration. Electronically signed by: Anna Stokes MD 11/08/23 00:30 AM ECG Additional Comments: EKG - per my interpretation, ST at 100bpm, normal axis, XW=955, QRS=86, DOf=107, no acute ischemic findings PG Care Time/CCT Total # of Minutes Spent Total Time Spent with Patient: Total time spent is greater than 50% in coordination of care (as documented) at patient's floor/unit and/or counseling patient: Coding Level of Care Code 32962 INT INP/OBS CARE 2/55MIN Diagnoses Multifocal pneumonia J18.9
[2023-11-08] MEDS ORDERED: HYDROcodone/HOMATROPINE SYRUP 5MG/1.5MG 5ML UDP PO PRN (03:30)
[2023-11-08] MEDS ORDERED: ALBUTEROL HFA 8 GM INHALER INH PRN (03:30)
[2023-11-08] MEDS ORDERED: DOCUSATE SODIUM 100 MG CAP PO PRN (03:30)
[2023-11-08] MEDS ORDERED: ONDANSETRON INJ 2 MG/ML 2 ML VIAL IV PRN ×2 (03:30)
[2023-11-08] MEDS: ACETAMINOPHEN 325 MG TAB PO PRN ×4 (04:59→22:08)
[2023-11-08] MEDS: PIPERACILLIN/TAZOBACTAM 4.5 GM in DEXTROSE 5% MINI-B 100 ML IV SCH ×3 (04:59→22:08)
--- NOTE | 2023-11-08 07:17 | XRay Report ---
XR chest 1V not portable HISTORY: Shortness of breath. Chest pain, nonspecific COMPARISON: Chest 11/01/2023. FINDINGS: No pneumothorax. No pleural effusions. The heart is normal in size. No acute fractures iden tified. Patchy peripheral airspace opacity within the right upper lobe and focal consolidation within the base of the left lower lobe are new compared to the prior study. Right lower lobe airspace opaci ties persist. This favors a pneumonia. IMPRESSION: Progressive bilateral airspace opacities suggestive of a multifocal pneumonia. ACT 112: Negative or not required by law. Electronically signed by: Eb John M.D. 11/08/2023 7:15 AM
[2023-11-08] MEDS: FLUTICASONE/VILANTEROL 200/25MCG 14 PUFFS/INHALER INH SCH (09:01)
[2023-11-08] MEDS: IPRATROPIUM BROMIDE NASAL SPRAY 0.06% 15ML SCH ×2 (09:02→20:29)
[2023-11-08] MEDS: guaiFENesin 600 MG TABCR PO SCH ×2 (09:02→20:29)
--- NOTE | 2023-11-08 12:14 | Electrocardiogram Report ---
Test Reason : Blood Pressure : / mmHG Vent. Rate : 100 BPM Atrial Rate : 100 BPM P-R Int : 144 ms QRS Dur : 086 ms QT Int : 322 ms P-R-T Axes : 062 051 059 degrees QTc Int : 415 ms Normal sinus rhythm Normal ECG When compared with ECG of 14-OCT-2023 11:37, No significant change was found Confirmed by Luis Brar ([id number]) on 11/08/2023 12:13:47 PM Referred By: REFERRED SELF Confirmed By:Luis Brar
[2023-11-08 18:01] LABS: Basophils # (auto) 0.03 K/uL (0.00-0.20); Basophils % (auto) 0.2 %; Eosinophils # (auto) 0.03 K/uL (0.00-0.50); Eosinophils % (auto) 0.2 %; Hematocrit (blood only) 36.5 % (42.0-52.0); Hemoglobin 12.3 g/dl (14.0-18.0); Immature Granulocytes % (auto) 0.6 %; Lymphocytes # (auto) 1.07 K/uL (1.20-3.40); Mean Corpuscular Hemoglobin 30.5 pg (25.0-34.0); Mean Corpuscular Hgb Conc 33.7 g/dL (32.0-36.0); Mean Corpuscular Volume 90.6 fL (80.0-100.0); Mean Platelet Volume 8.3 fL (9.4-12.4); Monocytes # (auto) 0.55 K/uL (0.11-0.59); Monocytes % (auto) 3.1 %; Neutrophils # (auto) 15.92 K/uL (1.40-6.50); Neutrophils % (auto) 89.9 %; Platelet Count 154 K/uL (130-400); RDW Coefficient of Variation 12.7 % (11.5-14.5); RDW Standard Deviation 42.2 fL (36.4-46.3); Red Blood Count 4.03 M/uL (4.70-6.10)
[2023-11-08 18:52] LABS: BUN Creatinine Ratio 17.7 (10-20); C Reactive Protein 11.63 mg/dl (0-0.5); Calcium 8.8 mg/dl (8.6-10.3); Creatinine Clr Calc Pharmacy 96.7 ml/min; Est GFR (African American) 110.8 ml/min; Est GFR (Non-African American) 95.6 ml/min
[2023-11-08] MEDS: CETIRIZINE HCL 10 MG TABLET PO SCH (20:29)
[2023-11-09] MEDS: PIPERACILLIN/TAZOBACTAM 4.5 GM in DEXTROSE 5% MINI-B 100 ML IV SCH ×2 (06:04→14:18)
[2023-11-09 07:02] LABS: Hematocrit (blood only) 35.5 % (42.0-52.0); Hemoglobin 11.7 g/dl (14.0-18.0); Mean Corpuscular Hemoglobin 30.3 pg (25.0-34.0); Mean Platelet Volume 8.6 fL (9.4-12.4); Platelet Count 154 K/uL (130-400); RDW Coefficient of Variation 12.8 % (11.5-14.5); RDW Standard Deviation 42.1 fL (36.4-46.3); Red Blood Count 3.86 M/uL (4.70-6.10); White Blood Count 12.13 K/ul (4.8-10.8)
[2023-11-09 07:13] LABS: BUN Creatinine Ratio 15.7 (10-20); C Reactive Protein 12.43 mg/dl (0-0.5); Calcium 9.2 mg/dl (8.6-10.3); Creatinine Clr Calc Pharmacy 109.1 ml/min; Est GFR (African American) 116.4 ml/min; Est GFR (Non-African American) 100.4 ml/min; Potassium 4.2 mmol/L (3.5-5.1)
[2023-11-09] MEDS: FLUTICASONE/VILANTEROL 200/25MCG 14 PUFFS/INHALER INH SCH (07:52)
[2023-11-09] MEDS: guaiFENesin 600 MG TABCR PO SCH ×2 (07:53→19:26)
[2023-11-09] MEDS: IPRATROPIUM BROMIDE NASAL SPRAY 0.06% 15ML SCH ×2 (07:53→19:27)
[2023-11-09] MEDS: ACETAMINOPHEN 325 MG TAB PO PRN ×2 (07:57→21:30)
--- NOTE | 2023-11-09 16:46 | XRay Report ---
XR chest 2V PA/lateral HISTORY: pneumonia COMPARISON: Chest CTA 11/07/2023. FINDINGS: No pneumothorax. No pleural effusions. The heart is normal in size. No evidence for pulmona ry edema. No acute fractures. Small patchy bilateral airspace opacities persist. This is most pronoun ozzie within the left lung base. IMPRESSION: No significant change in the scattered patchy bilateral airspace opacities likely representing a mult ifocal pneumonia. ACT 112: Negative or not required by law. Electronically signed by: Eb John M.D. 11/09/2023 4:44 PM
--- NOTE | 2023-11-09 18:38 | Hospitalist Progress Note ---
Date of Service November 09, 2023 Assessment & Plan (1) Multifocal pneumonia: Plan: Viral with now superimposed bacterial pneumonia 63yo male with ongoing respiratory complaints for approximately 1 month. Patient has completed 10 days of Cefdinir, 5 days of Azithromycin as well as a course of Solumedrol. He has been using his Advair inhaler BID as well. Still with persistent cough keeping him up at night. He experienced worsening of symptoms today including fever, chills, body aches, worsening fatigue and cough as well as hypoxia at home to 87% on room air. Patient lhad RSV viral in early October, which was treated with [address] eroids and antibiotics which ended on Oct 24 Patient worsened over course of the next week, he never felt like he was back to his baseline. Workup as above with elevation on WBC count at 20.78 with neutrophil predominance. Procalcitonin is NEGATIVE as is Respiratory biofire panel. CTA chest with multifocal PNA. Saturations are adequate on room air here. Treating for a community acquired bacterial pneumonia. Patient improved on zosyn. OBtained 3 sputum cultures, no did not hep with treatment. Transitioned to amoxicillin and doxy for empiric coverage. Will recommend 5 days of doxy and complete antibiotics for 10 days/ -Continue Advair and PRN Albuterol Patient did not feel comfortbale being discharged on 11/09 WBC improving. Anticipate discharge on 11/10 Admission and Anticipated Discharge Date Admission Date: November 08, 2023 Subjective Patient reports feeling better, coughing up more sputum, breathing better. Cough is slightly better. Patient has no new complaints. Review of Systems Review of Systems: All systems reviewed & are unremarkable except as noted in HPI & below Physical Exam Physical Exam: General: patient resting comfortably, NAD, HEENT: NC/AT, Heart: +S1/S2, regular, no m/r/g Lungs: not using accessory muscles to breathe Results & Data Results & Data Vital Signs (Past 12 Hours) Vital Signs Temp Pulse Resp BP Pulse Ox O2 Del Method 11/09/23 15:00 36.8 C 75 16 119/76 95 Room Air 11/09/23 07:44 Room Air 11/09/23 07:04 36.9 C 74 16 117/69 97 Room Air PG Care Time/CCT Total # of Minutes Spent Total Time Spent with Patient: Total time spent is greater than 50% in coordination of care (as documented) at patient's floor/unit and/or counseling patient: Coding Level of Care Code 56242 SUB INP/OBS CARE MIN Diagnoses Multifocal pneumonia J18.9
[2023-11-09] MEDS: DOXYCYCLINE HYCLATE 100 MG CAP PO SCH (19:27)
[2023-11-09] MEDS: AMOXICILLIN 500 MG CAP PO SCH (19:27)
[2023-11-09] MEDS: CETIRIZINE HCL 10 MG TABLET PO SCH (19:27)
[2023-11-10] MEDS: ACETAMINOPHEN 325 MG TAB PO PRN (07:19)
[2023-11-10 07:34] LABS: Basophils # (auto) 0.02 K/uL (0.00-0.20); Basophils % (auto) 0.2 %; Eosinophils # (auto) 0.06 K/uL (0.00-0.50); Eosinophils % (auto) 0.7 %; Hematocrit (blood only) 39.6 % (42.0-52.0); Hemoglobin 13.4 g/dl (14.0-18.0); Immature Granulocytes # (auto) 0.06 K/uL (0.01-0.20); Immature Granulocytes % (auto) 0.7 %; Lymphocytes # (auto) 1.55 K/uL (1.20-3.40); Lymphocytes % (auto) 18.3 %; Mean Corpuscular Hemoglobin 30.6 pg (25.0-34.0); Mean Corpuscular Hgb Conc 33.8 g/dL (32.0-36.0); Mean Corpuscular Volume 90.4 fL (80.0-100.0); Mean Platelet Volume 8.5 fL (9.4-12.4); Monocytes # (auto) 0.44 K/uL (0.11-0.59); Monocytes % (auto) 5.2 %; Neutrophils # (auto) 6.32 K/uL (1.40-6.50); Neutrophils % (auto) 74.9 %; Platelet Count 205 K/uL (130-400); RDW Coefficient of Variation 12.5 % (11.5-14.5); RDW Standard Deviation 41.3 fL (36.4-46.3); Red Blood Count 4.38 M/uL (4.70-6.10); White Blood Count 8.45 K/ul (4.8-10.8)
[2023-11-10] MEDS: AMOXICILLIN 500 MG CAP PO SCH (07:39)
[2023-11-10] MEDS: DOXYCYCLINE HYCLATE 100 MG CAP PO SCH (07:40)
[2023-11-10] MEDS: FLUTICASONE/VILANTEROL 200/25MCG 14 PUFFS/INHALER INH SCH (07:41)
[2023-11-10] MEDS: guaiFENesin 600 MG TABCR PO SCH (07:41)
[2023-11-10] MEDS: IPRATROPIUM BROMIDE NASAL SPRAY 0.06% 15ML SCH (07:42)
[2023-11-10 07:47] LABS: BUN Creatinine Ratio 19.4 (10-20); C Reactive Protein 6.21 mg/dl (0-0.5); Calcium 9.8 mg/dl (8.6-10.3); Est GFR (African American) 118.5 ml/min; Est GFR (Non-African American) 102.3 ml/min
--- NOTE | 2023-11-10 08:08 | Hospitalist Progress Note ---
Date of Service November 10, 2023 Assessment & Plan (1) Multifocal pneumonia: Plan: Viral with now superimposed bacterial pneumonia 63yo male with ongoing respiratory complaints for approximately 1 month. Patient has completed 10 days of Cefdinir, 5 days of Azithromycin as well as a course of Solumedrol. He has been using his Advair inhaler BID as well. Still with persistent cough keeping him up at night. He experienced worsening of symptoms on presentation including fever, chills, body aches, worsening fatigue and cough as well as hypoxia at home to 87% on room air. Patient had RSV viral in early October, which was treated with 10 days of steroids and antibiotics which ended on Oct 24 Patient worsened over course of the next week, he never felt like he was back to his baseline. Workup as above with elevation on WBC count at 20.78 with neutrophil predominance. Procalcitonin is NEGATIVE as is Respiratory biofire panel. CTA chest with multifocal PNA. Saturations are adequate on room air here. Treating for a community acquired bacterial pneumonia. Patient improved on zosyn. OBtained 3 sputum cultures, no did not help with treatment. Transitioned to amoxicillin and doxy for empiric coverage. Will recommend 5 days of doxy and complete antibiotics for 10 days/ -Continue Advair and PRN Albuterol Patient did not feel comfortable being discharged on 11/09 WBC improving. Anticipate discharge on 11/10 Admission and Anticipated Discharge Date Admission Date: November 08, 2023 Results & Data Results & Data Vital Signs (Past 12 Hours) Vital Signs Temp Pulse Resp BP Pulse Ox O2 Del Method 11/10/23 07:33 Room Air 11/10/23 07:02 98.1 F 70 16 124/71 97 Room Air 11/09/23 21:03 98.2 F 70 16 122/75 98 Room Air PG Care Time/CCT Total # of Minutes Spent Total Time Spent with Patient: Total time spent is greater than 50% in coordination of care (as documented) at patient's floor/unit and/or counseling patient: Coding Diagnoses Multifocal pneumonia J18.9
--- NOTE | 2023-11-10 17:44 | Discharge Summary ---
Date of Service November 10, 2023 Admission HPI Per Admitting Provider Corey Moore is a 63yo male with a history of well controlled asthma and chronic sinusitis presenting with fever, chills and cough. Patient first became ill approximately 1 month ago at the beginning of October. He had productive cough, fevers, chills and body aches at that time. On 10/14/23 he was found to be POSITIVE for RSV as well as Streptococcus pneumoniae in the sputum. He was seen by his PCP at that time and ultimately sent to the ER for persistent tachycardia. He had a CTA of the chest which showed mucus plugging with a mild right basilar PNA, no PE. He was prescribed Cefdinir x 10d as well as Azithromycin x 5d course which he completed. He reports that his symptoms persisted. He was seen again by his PCP on 10/19/23 and was started on Medrol dose pack for ongoing symptoms. Again he reported that his symptoms persisted. He was seen again by his PCP on 11/01/23 and was started on Advair. He has had ongoing cough and congestion as well as some right sided back pain. Today he noted worsening cough with yellow sputum as well as chills/shakes and a fever to 102. His pulse ox was also low at 87% on room air.. In the ER he is afebrile, HD stable. Adequate oxygenation on room air. ER Course: Toradol 10mg IV Tylenol 1gm IV NSS x 2L Zosyn 4.5gm Principal Diagnosis paroxysmal cough multifocal pneumonia recent RSV Discharge Exam lungs are clear, no focal loss cardiac is regular Discharge Data Allergies Allergy/AdvReac Type Severity Reaction Status Date / Time house dust mite Allergy Mild congestion Verified 11/01/23 10:04 mold Allergy Mild congestion Verified 11/01/23 10:04 pollen extracts Allergy Mild congestion Verified 11/01/23 10:04 weed pollen Allergy Mild congestion Verified 11/01/23 10:04 codeine AdvReac Mild N/V Verified 11/01/23 10:04 Consultations 11/08/23 00:45 ED Decision to Admit Stat Ordered Studies Chest X-Ray 11/07/23 21:47 XR chest 1V not portable HISTORY: Shortness of breath. Chest pain, nonspecific COMPARISON: Chest 11/01/2023. FINDINGS: No pneumothorax. No pleural effusions. The heart is normal in size. No acute fractures identified. Patchy peripheral airspace opacity within the right upper lobe and focal consolidation within the base of the left lower lobe are new compared to the prior study. Right lower lobe airspace opacities persist. This favors a pneumonia. IMPRESSION: Progressive bilateral airspace opacities suggestive of a multifocal pneumonia. ACT 112: Negative or not required by law. Electronically signed by: Eb John M.D. 11/08/2023 7:15 AM Chest CTA 11/07/23 23:34 Exam(s): CTA CHEST IV Amt: 119 ml optiray 320 EXAM: CT Angiography Chest With Intravenous Contrast CLINICAL HISTORY: Pulmonary embolus. TECHNIQUE: Axial computed tomographic angiography images of the chest with intravenous contrast. CTDI is 27 mGy and DLP is 571.76 mGy-cm. Automated exposure control was utilized for the study. A dose lowering technique was utilized adhering to the principles of ALARA. MIP reconstructed images were created and reviewed. COMPARISON: Chest radiograph 11/07/2023 FINDINGS: Pulmonary arteries: Unremarkable. No pulmonary embolus. Aorta: Minimal atherosclerosis. No thoracic aortic aneurysm. Lungs: Airspace opacities of the bilateral lower lobes and right upper lobe are concerning for multifocal pneumonia and/or aspiration. Pleural space: Unremarkable. No significant effusion. No pneumothorax. Heart: Unremarkable. No cardiomegaly. No significant pericardial effusion. No evidence of RV dysfunction. Bones/joints: There are degenerative changes of the spine. No acute fracture. Soft tissues: Unremarkable. Lymph nodes: Unremarkable. No enlarged lymph nodes. IMPRESSION: 1. No pulmonary embolus. 2. Airspace opacities of the bilateral lower lobes, right upper lobe and to a lesser degree right middle lobe are concerning for multifocal pneumonia and/or aspiration. Electronically signed by: Anna Stokes MD 11/08/23 00:30 AM Chest X-Ray 11/09/23 16:05 XR chest 2V PA/lateral HISTORY: pneumonia COMPARISON: Chest CTA 11/07/2023. FINDINGS: No pneumothorax. No pleural effusions. The heart is normal in size. No evidence for pulmonary edema. No acute fractures. Small patchy bilateral airspace opacities persist. This is most pronounced within the left lung base. IMPRESSION: No significant change in the scattered patchy bilateral airspace opacities likely representing a multifocal pneumonia. Electronically signed by: Eb John M.D. 11/09/2023 4:44 PM Hospital Course (1) Multifocal pneumonia: Viral with now superimposed bacterial pneumonia 63yo male with ongoing respiratory complaints for approximately 1 month. Dorie herr has completed 10 days of Cefdinir, 5 days of Azithromycin as well as a course of Solumedrol. He has been using his Advair inhaler BID as well. Still with persistent cough keeping him up at night. He experienced worsening of symptoms on presentation including fever, chills, body aches, worsening fatigue and cough as well as hypoxia at home to 87% on room air. Patient had RSV viral in early October, which was treated with 10 days of steroids and antibiotics which ended on Oct 24 Patient worsened over course of the next week, he never felt like he was back to his baseline. Workup as above with elevation on WBC count at 20.78 with neutrophil predominance. Procalcitonin is NEGATIVE as is Respiratory biofire panel. CTA chest with multifocal PNA. upon discharge does not need oxygen, will complete a course of Doxycycline Treating for a community acquired bacterial pneumonia. OBtained 3 sputum cultures, no organism identified Total Time Total Time Spent Total Time Spent (In Minutes): It required greater than 30 minutes to prepare this patient for discharge. Including bedside discussion with patient prescribed antitussive for home Discharge Plan Discharge Items Patient Disposition: Home - Self-Care Reason For Visit: COUGH, SOB Discharge Diagnosis: Multifocal pneumonia Condition on Discharge: Good Activity: Resume your previous activity Non-emergency contact: Primary Care Provider Call non-emergency contact if: your symptoms worsen Follow-up/Referrals: Luis Baird MD [Primary Care Provider] - 11/14/23 11:30 am Diet: Regular Addtl Attending Provider Instructions: you have been diagnosed with pneumonia and we are recommending you continue ant ibiotics for a few more days after discharge and follow up with your family doctor Pending Studies at Discharge: No Stand-Alone Forms: My [employer], Smoking Cessation Medications and DC Order Prescriptions: New doxycycline hyclate 100 mg Capsule 100 mg PO BID Qty: 14 0RF codeine-guaifenesin 10-100 mg/5 mL liquid 10 ml PO Q6H PRN (Reason: cough) Qty: 120 0RF Continued sildenafil (pulm.hypertension) 20 mg tablet 20 mg PO UD PRN (Reason: ud) Qty: 30 3RF Rx Instructions: 20 mg PO TAKE 2-5 TABLETS PRN; benzonatate 200 mg capsule 200 mg PO TID PRN (Reason: cough) Qty: 30 0RF [id number]/Laxasperse Cap capsule See Rx Instructions .ROUTE .COMPLEX Qty: 20 1RF Rx Instructions: Mix 1 cap & 1 saline pkt w/ 6oz distilled h20 in bottle. Irrigate 3oz each nasal passage BID. fluticasone propion-salmeterol [Advair HFA] 115-21 mcg/actuation HFA aerosol inhaler 2 puff inhalation BID Qty: 12 1RF cetirizine 10 mg tablet 10 mg PO QPM Qty: 30 multivitamin [Daily Multi-Vitamin] tablet 1 tab PO QAM albuterol sulfate 90 mcg/actuation HFA aerosol inhaler 2 inh INH Q4H PRN (Reason: sob) Qty: 8.5 5RF zinc 15 mg Tablet 15 mg PO QAM magnesium citrate 4 gram Packet 250 mg PO QAM Probiotic 20 billion cell Capsule 20,000 mmu cells PO QAM Rx Instructions: administer with a meal ipratropium bromide 42 mcg (0.06 %) spray,non-aerosol 2 spray intranasal BID omega-3 fatty acids 1,000 mg Capsule 1,000 mg PO QAM Discharge Orders: Discharge Order (Routine); Ordered 11/10/23 Ordered By: Berto Ornelas/Other Patient Handouts: Preventing Pneumonia, Infec Common Resp Prevention Admission Data Admit Date/Time: 11/08/23 01:45 Attending Provider: Berto Henderson Admit Provider: Chelsea Pleitez Primary Care Provider: Luis Baird Other Providers: Chelsea Pleitez Other Interventions: Discharge Summary Assessment (RN) Last Done: 11/10/23 11:53 Coding Level of Care Code 91777 INP/OBS DISCH >30 MIN Diagnoses Multifocal pneumonia J18.9
[2023-11-11 20:38] LABS: Fungitell (1-3)-B-D-Glucan <31 pg/mL
== END 2023-11-10 13:05 | disposition home or self-care (01) | DRG 195 ==
LOC: ED 21:40 → SUATTDRO 11-08 01:45 → 3W 11-08 01:45